=== PATIENT | female | born 1935 | race Caucasian/White ===

== ENCOUNTER 2021-06-09 18:02 | Inpatient (IN) | payer OTHER ==
[~2021-06-09] VITALS: Ht 167.6 cm; Wt 63.5 kg
[2021-06-09] MEDS ORDERED: DILTIAZEM HCL 60 MG TABLET PO ONE (18:45)
[2021-06-09] MEDS ORDERED: DILTIAZEM HCL IV 10 MG in IV DEXTROSE 5% 100 ML IV ONE (18:45)
[2021-06-09] MEDS ORDERED: IV NORMAL SALINE 500 ML BAG IV ONE (18:45)
[2021-06-09] MEDS ORDERED: DILTIAZEM HCL 25 MG IV ONE (18:46)
[2021-06-09] MEDS ORDERED: DILTIAZEM HCL 30 MG TABLET ONE (18:55)
[2021-06-09] MEDS ORDERED: DILTIAZEM HCL 25 MG IV IV ONE (19:00)
[2021-06-09] MEDS ORDERED: ALBU8.5H8 INH (19:03)
[2021-06-09] MEDS ORDERED: LACTOBACILLUS PO (19:03)
[2021-06-09] MEDS ORDERED: HYDR-894 PO (19:03)
[2021-06-09] MEDS ORDERED: AMIT10TA6 PO (19:03)
[2021-06-09] MEDS ORDERED: FOLI1TAB94 PO (19:03)
[2021-06-09] MEDS ORDERED: DILT120T2 PO (19:03)
[2021-06-09] MEDS ORDERED: TYLENOL PO (19:03)
[2021-06-09] MEDS ORDERED: MAGN400O6 PO (19:03)
[2021-06-09] MEDS ORDERED: SITA50TA PO (19:03)
[2021-06-09] MEDS ORDERED: FERR325T28 PO (19:03)
[2021-06-09] MEDS ORDERED: METO50TA16 PO (19:03)
[2021-06-09] MEDS ORDERED: CEPH500T PO (19:03)
[2021-06-09] MEDS ORDERED: FURO40TA5 PO (19:03)
[2021-06-09] MEDS ORDERED: NA P133E RC (19:03)
[2021-06-09] MEDS ORDERED: BISA10SU61 RC (19:03)
[2021-06-09] MEDS ORDERED: TUBERCULIN PPD (19:03)
[2021-06-09] MEDS ORDERED: LEVO25TA9 PO (19:03)
[2021-06-09] MEDS ORDERED: POTA10CA43 PO (19:03)
[2021-06-09] MEDS ORDERED: INSU100C (19:03)
[2021-06-09] MEDS ORDERED: FENO48TA6 PO (19:03)
[2021-06-09] MEDS ORDERED: ACET325T53 PO (19:03)
[2021-06-09] MEDS ORDERED: RIVA10TA PO (19:03)
--- NOTE | 2021-06-09 19:11 | NUR ---
CALLED [facility] FOR A PANEL CALL, BENJY LYN WAS PAGED.
--- NOTE | 2021-06-09 19:14 | NUR ---
BIB [facility] FOR RAPID HEART RATE, PLACED ON A MONITOR. IV ALREADY IN PLACE. HR 188. DR LAWLER NOTIFIED. PATIENT DENIES CHEST PAIN OR SOB. CARDIZEM GIVEN ORDERED. BP 129/63 AND HR 112 AT THIS TIME HAND OFF REPORT GIVEN TO MARVIN SHAY
--- NOTE | 2021-06-09 19:20 | NUR ---
RECEIVED REPORT FROM SIVAKUMAR SHAY.
[2021-06-09 19:23] LABS: HEMATOCRIT 27.6 % (31.2-41.9); MEAN CORPUSCULAR HEMOGLOBIN 34.2 uug (24.7-32.8); MEAN CORPUSCULAR VOLUME 101.5 fL (75.5-95.3); PLATELET COUNT (AUTO) 277 K/uL (179-408)
[2021-06-09 19:35] LABS: CARBON DIOXIDE 33 mmol/L (21-32); CHLORIDE 100 mmol/L (98-107); CREATININE 1.7 mg/dL (0.6-1.3); GLUCOSE 289 mg/dL (74-106); POTASSIUM 4.6 mmol/L (3.5-5.1); UREA NITROGEN, BLOOD 43 mg/dL (7-18)
[2021-06-09 19:39] LABS: ALANINE AMINOTRANSFERASE 12 U/L (14-59); ALKALINE PHOSPHATASE 79 U/L (50-136); ASPARTATE AMINOTRANSFERASE 19 U/L (15-37); BILIRUBIN,TOTAL 0.3 mg/dL (0.2-1.0); TOTAL PROTEIN, SERUM 5.9 g/dL (6.4-8.2)
--- NOTE | 2021-06-09 19:42 | NUR ---
XRAY AT BEDSIDE.
[2021-06-09 20:03] LABS: THYROID STIMULATING HORMONE 66.239 mIU/mL (0.358-3.740)
--- NOTE | 2021-06-09 21:38 | NUR ---
Patient is resting comfortably in bed with eyes closed. Vitals stable.
--- NOTE | 2021-06-10 01:10 | NUR ---
PROVIDED PT WITH PROPER PERINEAL CARE, NOTED TO BE CLEAN AND DRY.
[2021-06-10 01:50] LABS: *BILIRUBIN,URIN NEGATIVE (NEGATIVE); *BLOOD, URINE NEGATIVE (NEGATIVE); *CLARITY,URINE HAZY (CLEAR); *COLOR,URINE YELLOW (YELLOW); *KETONES,URINE NEGATIVE (NEGATIVE); *UROBILINOGEN,URINE 0.2 E.U./dl (NORMAL); LEUKOCYTE ESTERASE ,URINE 1+ (NEGATIVE); NITRITE, URINE NEGATIVE (NEGATIVE); UGLUCOSE NEGATIVE (NEGATIVE)
[2021-06-10 01:51] LABS: BACTERIA,URINE FEW /HPF (NONE SEEN); RBC,URINE 0-3 /HPF (0-3); SQUAMOUS EPITHELIAL CELL,UR FEW /HPF (NONE SEEN); WBC,URINE 20-50 /HPF (0-3)
--- NOTE | 2021-06-10 02:30 | NUR ---
Paged Epic panel infantry weapons crewmember, Waiting for Dr Razo to call back.
--- NOTE | 2021-06-10 02:35 | NUR ---
Dr Razo accepted patient to Tele floor.
[2021-06-10] MEDS ORDERED: ENOXAPARIN SODIUM 40 MG/0.4 ML DISP.SYRIN SQ SCH (02:45)
[2021-06-10] MEDS ORDERED: Z GUARD REMEDY PASTE 57 GM TUBE TOP PRN (02:45)
[2021-06-10] MEDS ORDERED: ACETAMINOPHEN 325 MG TABLET PO PRN (02:45)
[2021-06-10] MEDS ORDERED: ONDANSETRON 4 MG/2 ML VIAL IV PRN (02:45)
[2021-06-10] MEDS ORDERED: MAGNESIUM HYDROXIDE 30 ML LIQUID UDC PO PRN (02:45)
--- NOTE | 2021-06-10 03:31 | NUR ---
Informed Dr Razo that troponin is 1.117. She will order Heparin 5,000 units bolus and heparin drip per protocol.
[2021-06-10] MEDS ORDERED: HEPARIN/D5W DRIP 500 ML IV PRN (03:44)
[2021-06-10] MEDS ORDERED: HEPARIN SODIUM,PORCINE/PF 100 UNIT/ML, 5ML SYR XX ONE (03:44)
[2021-06-10] MEDS ORDERED: HEPARIN SODIUM,PORCINE 5,000 UNITS/ML VIAL ONE (03:49)
[2021-06-10] MEDS ORDERED: HEPARIN/D5W DRIP 500 ML ONE (03:50)
--- NOTE | 2021-06-10 03:50 | NUR ---
DR. PAREDES GAVE ORDER TO HOLD LOVENOX 40 MG.
--- NOTE | 2021-06-10 05:50 | NUR ---
PT IN BED RESTING, EYES CLOSED. BREATHING EVEN AND UNLABORED.
[2021-06-10] MEDS ORDERED: DILTIAZEM HCL 30 MG TABLET PO SCH (06:00)
[2021-06-10] MEDS ORDERED: PANTOPRAZOLE SODIUM 40 MG TABLET.DR PO ONE (06:24)
[2021-06-10] MEDS ORDERED: DILTIAZEM HCL 30 MG TABLET ONE (06:24)
[2021-06-10] MEDS ORDERED: PANTOPRAZOLE SODIUM 40 MG TABLET.DR PO SCH (07:00)
[2021-06-10] MEDS ORDERED: INSULIN REGULAR, HUMAN 300 UNIT/3 ML VIAL SQ PRN (08:30)
[2021-06-10] MEDS ORDERED: MORPHINE SULFATE 2 MG/1 ML DISP.SYRIN IV PRN (08:30)
[2021-06-10] MEDS ORDERED: LABETALOL HCL 100 MG/20 ML VIAL IV PRN (08:30)
[2021-06-10] MEDS ORDERED: DEXTROSE 50% 50 ML DISP.SYRIN IV PRN (08:30)
[2021-06-10] MEDS ORDERED: hydrALAZINE HCL 20 MG/1 ML VIAL IV PRN (08:30)
[2021-06-10] MEDS ORDERED: CEFTRIAXONE 1 G VIAL IM SCH (08:45)
[2021-06-10] MEDS ORDERED: ALBUTEROL SULFATE 8 GM HFA.AER.AD INH PRN (08:45)
[2021-06-10] MEDS ORDERED: BISACODYL 10 MG SUPP.RECT RC SCH (08:45)
[2021-06-10] MEDS ORDERED: ASPIRIN 81 MG TAB.CHEW ONE (08:59)
[2021-06-10] MEDS ORDERED: ALBUTEROL SULFATE 2.5 MG/3 ML NEBU NEB PRN (09:00)
[2021-06-10] MEDS ORDERED: LEVOTHYROXINE SODIUM 25 MCG TABLET PO SCH ×2 (09:00)
[2021-06-10] MEDS ORDERED: ASPIRIN 81 MG TAB.CHEW PO SCH (09:00)
[2021-06-10] MEDS ORDERED: DILTIAZEM HCL CD 120 MG CAP.SR.24H PO SCH (09:00)
[2021-06-10] MEDS ORDERED: FOLIC ACID 1 MG TABLET PO SCH (09:00)
[2021-06-10] MEDS ORDERED: CEFTRIAXONE 1 G in IV DEXTROSE 5% 50 ML IV SCH (09:00)
[2021-06-10] MEDS ORDERED: FENOFIBRATE NANOCRYSTALLIZED 48 MG TABLET PO SCH (09:00)
[2021-06-10 09:03] LABS: HEMATOCRIT 28.6 % (31.2-41.9); MEAN CORPUSCULAR HEMOGLOBIN 34.5 uug (24.7-32.8); MEAN CORPUSCULAR VOLUME 101.8 fL (75.5-95.3); PLATELET COUNT (AUTO) 234 K/uL (179-408)
[2021-06-10 09:05] LABS: ALANINE AMINOTRANSFERASE 10 U/L (14-59); ALKALINE PHOSPHATASE 77 U/L (50-136); ASPARTATE AMINOTRANSFERASE 21 U/L (15-37); BILIRUBIN,TOTAL 0.4 mg/dL (0.2-1.0); CARBON DIOXIDE 31 mmol/L (21-32); CHLORIDE 101 mmol/L (98-107); CREATININE 1.4 mg/dL (0.6-1.3); GLUCOSE 223 mg/dL (74-106); POTASSIUM 4.3 mmol/L (3.5-5.1); TOTAL PROTEIN, SERUM 6.2 g/dL (6.4-8.2); UREA NITROGEN, BLOOD 40 mg/dL (7-18)
[2021-06-10] MEDS: BLOOD SUGAR DIAGNOSTIC 1 EACH STRIP VI SCH ×4 (09:35→21:53)
[2021-06-10] MEDS ORDERED: FOLIC ACID 1 MG TABLET ONE (09:43)
[2021-06-10] MEDS ORDERED: DILTIAZEM HCL CD 120 MG CAP.SR.24H PO ONE (09:44)
[2021-06-10] MEDS ORDERED: METOPROLOL TARTRATE 50 MG TABLET ONE ×2 (09:44→21:57)
[2021-06-10] MEDS ORDERED: hydrALAZINE HCL 25 MG TABLET ONE ×2 (09:44→19:42)
[2021-06-10] MEDS ORDERED: CEFTRIAXONE /D5W 50ML IVPB **ER PYXIS IV ONE (09:45)
--- NOTE | 2021-06-10 09:45 | NUR ---
Heparin drip d/c'ed at 5219
[2021-06-10] MEDS: hydrALAZINE HCL 25 MG TABLET PO SCH ×3 (09:50→19:40)
[2021-06-10] MEDS: FERROUS SULFATE 325 MG TABEC PO SCH ×3 (09:50→19:40)
[2021-06-10] MEDS: METOPROLOL TARTRATE 50 MG TABLET PO SCH ×2 (09:50→21:54)
[2021-06-10] MEDS ORDERED: ACETAMINOPHEN 325 MG TABLET-SA PATIENTS-PAIN ONLY PO SCH (12:00)
--- NOTE | 2021-06-10 13:00 | NUR ---
Pt refused food tray again
--- NOTE | 2021-06-10 16:10 | NUR ---
Gave pt sandwich and juice per request.
--- NOTE | 2021-06-10 17:35 | NUR ---
Dr Thompson at [facility] requested that Dr. Mancia call him directly for handoff at [phone]. [facility] does have bed available. Call back outpatient case manager "Taylor" at [phone] (option 2) -- left message. They will arrange x-port.
[2021-06-10] MEDS ORDERED: AMITRIPTYLINE HCL 10 MG TABLET PO SCH (18:00)
--- NOTE | 2021-06-10 18:40 | NUR ---
Called report to Leigha at [phone].
--- NOTE | 2021-06-10 19:05 | NUR ---
RECEIVED REPORT FROM SUZIE FALL RN. PT NOTED TO BE IN BED, AWAKE AND IN NO APPARENT DISTRESS. DENIES ANY PAIN/DISCOMFORT.
--- NOTE | 2021-06-10 19:10 | NUR ---
[facility] called to delay pick-up time to 2015
[2021-06-10] MEDS ORDERED: AMITRIPTYLINE HCL 10 MG TABLET ONE (19:42)
--- NOTE | 2021-06-10 20:32 | NUR ---
CALLED [facility], SPOKE WITH AURELIO, GIVEN ANOTHER ETA OF 30-45 MINUTES.
[2021-06-10] MEDS ORDERED: RIVAROXABAN 15 MG TABLET PO SCH (21:00)
[2021-06-10 21:54] VITALS: BP 112/70
[2021-06-10] MEDS ORDERED: RIVAROXABAN 15 MG TABLET ONE (21:57)
--- NOTE | 2021-06-10 22:47 | NUR ---
Patient is resting comfortably in bed with eyes closed.
--- NOTE | 2021-06-10 23:31 | NUR ---
[facility] AT BEDSIDE TO TRANSFER PT.
[2021-06-11] MEDS ORDERED: LEVOTHYROXINE SODIUM 50 MCG TABLET PO SCH (07:00)
== END 2021-06-10 23:31 | disposition short-term general hospital (02) | DRG 280 ==
LOC: ER 18:04 → TRANSITION 06-10 02:35
PROVIDERS: ADMIT Student in an Organized Health Care Education/Training Program; ATTEND Internal Medicine
DX: I48.20 Chronic atrial fibrillation, unspecified (principal); N17.0 Acute kidney failure with tubular necrosis; I21.A1 Myocardial infarction type 2; N39.0 Urinary tract infection, site not specified; G93.40 Encephalopathy, unspecified; I50.32 Chronic diastolic (congestive) heart failure; Z79.01 Long term (current) use of anticoagulants; E03.9 Hypothyroidism, unspecified; I25.2 Old myocardial infarction; I35.0 Nonrheumatic aortic (valve) stenosis; D50.9 Iron deficiency anemia, unspecified; E11.22 Type 2 diabetes mellitus with diabetic chronic kidney disease; E11.65 Type 2 diabetes mellitus with hyperglycemia; E78.5 Hyperlipidemia, unspecified; E86.1 Hypovolemia; F03.90 Unspecified dementia, unspecified severity, without behavioral disturbance, psychotic disturbance, mood disturbance, and anxiety; I25.10 Atherosclerotic heart disease of native coronary artery without angina pectoris; I47.1 Supraventricular tachycardia; N18.9 Chronic kidney disease, unspecified; Z79.4 Long term (current) use of insulin; Z20.822 Contact with and (suspected) exposure to COVID-19
CPT/HCPCS: 36415; 70030-TC; 71045; 84443; 85025; 85610; 85730; 87086; 93005; 93307; A4663; C1758; G0378; J0696; J1644; J3490; J7040; J7060